=== PATIENT | female | born 1945 | race Caucasian/White ===

== ENCOUNTER 2023-10-04 18:41 | Emergency (ER) | payer MEDICARE, OTHER, SELFPAY ==
[2023-10-04] VITALS (8 sets, daily range): BP systolic 125–171; BP diastolic 53–86
[2023-10-04 22:08] LABS: % Basophils 0.6 % (0-2); % Eosinophils 8.2 % (0-6); % Immature Granulocytes 0.3 % (0-0.5); % Lymphocytes 23.5 % (20.5-51.1); % Monocytes 7.9 % (1.7-9.3); % Neutrophils 59.5 % (42.2-75.2); Absolute Eosinophils 0.6 10^3/uL (0-0.7); Absolute Lymphocytes 1.6 10^3/uL (1.2-3.4); Absolute Monocytes 0.5 10^3/uL (0.1-0.6); Absolute Neutrophils 4.1 10^3/uL (1.4-6.5); Hematocrit 38.5 % (37.0-47.0); Hemoglobin 13.4 g/dL (12.0-16.0); Mean Corp Hgb Conc. 34.8 g/dL (33.0-37.0); Mean Corpuscular Hgb 30.8 pg (27.0-31.0); Mean Corpuscular Volume 88.5 fL (81.0-99.0); Mean Platelet Volume 9.8 fL (7.4-10.4); Nucleated Red Blood Cells % 0 %; Platelet Count 241 10^3/uL (130-400); Red Blood Cell Count 4.35 10^6/uL (4.20-5.40); Red Cell Dist. Width 12.6 % (11.5-14.5); White Blood Cell Count 6.9 10^3/uL (4.8-10.8)
[2023-10-04 22:23] LABS: COVID-19 Antigen Negative (Negative)
[2023-10-04] MEDS: NSS 1000 IV (22:28)
[2023-10-04] MEDS: BENADRYL 25 MG IV (22:28)
[2023-10-04] MEDS: REGLAN 10 MG IV (22:28)
[2023-10-04 22:36] LABS: Blood Urea Nitrogen 30 mg/dl (7-17); Calcium 9.3 mg/dl (8.4-10.2); Carbon Dioxide 24 mmol/L (22-30); Chloride 107 mmol/L (98-107); Glucose 94 mg/dl (70-99); Sodium 136 mmol/L (135-145); eGFR > 60.00
--- NOTE | 2023-10-04 23:23 | ED.GENMED ---
History of Present Illness
General
Chief Complaint: Ear Problem
Source: patient
Exam Limitations: none
Time Seen by Provider: 10/04/23 21:04
Nursing documentation reviewed up to this point in time: agreed with
Travel History
Have you had any contact with someone who has COVID-19?: No
Do you have any symptoms of coronavirus? Fever > 100 degrees, chills, cough, shortness of breath, sore throat, loss of taste or smell, muscle aches, or headache?: No
History of Present Illness
History of Present Illness:
77-year-old female with history of hypertension who presents to the emergency department for evaluation of tinnitus and headache, neck stiffness. Patient reports that 2 weeks ago she woke up with throbbing in her right ear. She says that this has
been persistent since then although intensity seems to worsen at nighttime. She says that initially she saw her primary doctor who thought perhaps she could have an ear infection and prescribed her some eardrops without improvement. She then was
sent for a CT of her sinuses which showed questionable sinusitis but no other acute pathology. She was referred to ENT but says that she was unable to get a follow-up appointment until October. This morning patient woke up with significant headache
she describes a biparietal headache. She says she is having stiffness in her neck. She says that with these worsening symptoms and continued pulsating in her right ear she came to the emergency to be assessed. She denies any nausea or vomiting.
She denies any change in vision or speech. Denies any weakness or numbness in her extremities. She denies any chest pain or shortness of breath. She denies having similar symptoms in the past. She denies any trauma to the head.
Past History
Past History
ED Past Medical History: HTN, Hypercholesterolemia and Other (Bowel obstruction, Diverticulosis and diverticulitis)
ED Past Surgical History: Bowel resection and Cholecystectomy
Social History
Tobacco: Non-smoker
Alcohol: Occasional
Personal:
Living: alone
Review of Systems
Review of Systems
All Other Systems: ROS reviewed and negative except as documented in HPI and ROS
Constitutional: Denies fever or chills
EENT: Reports other (Pulsatile tinnitus)
Respiratory: Denies cough or trouble breathing
Cardiac: Denies chest pain or palpitations
ABD/GI: Denies abdominal pain, nausea, vomiting or diarrhea
: Denies flank pain
Musculoskeletal: Reports other (Neck pain/stiffness); Denies neck pain or back pain
Neurological: Reports headache; Denies dizzy, weakness or numbness
Phy Exam
Physical Exam
Physical Exam:
General: Awake, alert, oriented x3; nontoxic
Head: Normocephalic, atraumatic
Eyes: Conjunctiva normal, EOMI, pupils equal round reactive to light bilateral
Ears: External ear normal bilaterally, no redness or tenderness of the mastoid processes bilaterally; TMs are clear bilaterally
Throat: Airway intact, handling secretions
Neck: Trachea midline, supple without meningismus; she does have some tenderness along the upper trapezius bilaterally somewhat worse on the left
Lungs: Clear to auscultation bilaterally, no wheezing, rales, rhonchi
Heart: Regular rate and rhythm, no murmurs, gallops, or rubs
Abd: Soft, non distended, nontender
Neuro: Cranial nerves intact 2 through 12, speech is fluent with no dysarthria or aphasia, no limb ataxia noted, motor and sensory function intact and symmetric proximally and distally in the upper and lower extremities
Skin: no rash
Extremities: No edema in extremities, equal pulses in all extremities
Scores
Heart Failure Risk
Heart Failure Risk Score: Not Applicable
Heart Score for Chest Pain Patients
STEMI patient?: Not applicable
Withdrawal Assessment of Alcohol
Withdrawal Assessment Completed?: Not applicable
Course
Orders/Labs/Results
Orders:
Orders
10/04/23 21:32
CT Head & Neck Angio W/wo IV Urgent
Comment:
Reason For Exam: pulsatile tinnitus x2w, now severe FITZGERALD, neck stiff
10/04/23 21:33
0.9% Sodium Chloride 1000 ml [Nss] 1,000 ml IV BOLUS
Diphenhydramine [Benadryl] 25 mg IV NOW STA
Metoclopramide [Reglan] 10 mg IV NOW STA
10/04/23 21:58
Basic Metabolic Panel Urgent
COVID-19 Antigen Urgent
Source: Nasal Swab
Complete Blood Count/With Diff Urgent
Influenza A+B Rapid Molecular Urgent
RAUDEL Source: Nasal Swab
Specimen Description:
10/05/23 00:11
Acetaminophen [Tylenol] 1,000 mg PO NOW STA
Ketorolac [Toradol] 15 mg IV NOW STA
Abnormal Lab Results
10/04/23
21:58
Eosinophils % 8.2 H %
(0-6)
BUN 30 H mg/dl
(7-17)
10/04/23 21:58
10/04/23 21:58
Vital Signs
Initial and Last Documented VS:
Initial Vital Signs
Temp Pulse Resp BP Pulse Ox
36.6 C 94 18 171/86 98
10/04/23 18:45 10/04/23 18:45 10/04/23 18:45 10/04/23 18:45 10/04/23 18:45
Last Documented Vital Signs
Temp Pulse Resp BP Pulse Ox
36.6 C 79 16 158/68 98
10/04/23 18:45 10/04/23 20:51 10/04/23 20:51 10/04/23 20:51 10/04/23 20:51
MDM/Problems Addressed
Differential Diagnosis Includes:
Hypertension, subarachnoid hemorrhage/aneurysm, carotid stenosis/dissection, vestibular schwannoma, ear infection
MDM/Problems Addressed:
77-year-old female presents for evaluation of pulsatile tinnitus now with headache and neck stiffness. Hypertensive to 171/86. Rest of vitals within acceptable range. Physical exam as above. Plan to place an IV check labs including CBC and CMP.
Swab for COVID influenza. Will check CTA of the head and neck to rule out hemorrhage, aneurysm, significant stenosis. Will treat symptomatically, monitor closely reassess after the above.
Labs reviewed: CBC and CMP unremarkable. Viral swabs negative. Awaiting results of CT. Blood pressure improving without intervention continue to monitor. Symptoms essentially unchanged.
CTA head and neck negative for hemorrhage, aneurysm, stenosis or dissection. Clinical reassessment patient still complaining of some stiffness in her upper trapezius bilaterally but says the headache did improve since my initial reassessment.
Suspect that this is likely musculoskeletal pain at this point; possible some component of her pulsatile tinnitus over the past few days has been from hypertension as she was significantly hypertensive here in triage and symptoms improved as her
blood pressure came down. Very low clinical suspicion for meningitis based on full clinical picture I do not think there is any indication for emergent lumbar puncture at this point. Will plan to dose with some Toradol and Tylenol for neck
stiffness and will reassess her response.
Patient is feeling much better after Toradol and Tylenol. Blood pressure greatly improved. Offered further observation but patient feels comfortable going home will have her take NSAIDs and Tylenol for the next few days and follow-up with her
primary doctor as well as ENT as scheduled. She feels comfortable with this plan. Spoke about return precautions all questions answered.
Acute Exacerbation and/or Progression of Chronic Illness:
Acutely hypertensive
Acute Exacerbation and/or Progression of Chronic Illness: HTN
*Radiology
Radiology exam reviewed: radiology read reviewed
*Pulse Oximetry
Patient hypoxic: no
*Critical Care Note
Total Time (30-74mins, 75-104mins- exclusive of procedures): Not Applicable
Data Reviewed
Source: patient
ED Attending Note
-
Portions of this chart may have been created with voice recognition software.� Occasional wrong word or��sound alike� substitutions may have occurred due to the inherent limitations of voice recognition software.
Discharge Plan
Departure
Patient Disposition: Home (Routine Discharge)
Date of Disposition: 10/05/23
Time of Disposition: 00:47
Patient with high blood pressure during this ER visit?: Yes
Discharge Problem:
Neck strain, Headache, Tinnitus, Hypertension
Instructions: Tinnitus (ringing in the ears), Cervical Muscle Strain, High Blood Pressure ED
Prescriptions:
No Action
lisinopril 10 MG tablet
10 mg PO DAILY
indapamide
2 mg PO DAILY
cefdinir 300 mg capsule
300 mg PO BID Qty: 14 0RF
Referrals:
Wade Weeks MD [Family Provider] - Call in 1-3 days for appt
Activity Restrictions/Additional Instructions:
Thank you for visiting the Emergency Department at [facility].
1. Please schedule a follow up appointment as directed. Call first thing tomorrow morning to make an appointment.
2. If indicated, please take your medications as instructed and indicated on discharge paperwork.
3. If any of your symptoms do not improve, or persist, or become more severe within 6-12 hours, please return to the emergency department for further care.
4. Please return to the emergency department if you develop a headache, neck pain/stiffness, fever greater than 100.4F, chest pain, shortness of breath, persistent nausea, vomiting, slurred speech, difficulty walking, numbness/tingling, weakness,
signs of infection or any other symptoms that are worrisome to you.
Please call [phone] if you have any questions.
Interventions
Interventions:
*Risk Screen - Suicide Last Done: 10/04/23 20:38
*General Assessment Last Done: 10/04/23 18:45
*Neglect/Abuse Screening Last Done: 10/04/23 20:38
ED- Fall Risk Assessment Last Done: 10/04/23 20:38
*ED COVID-19 Vaccine History Last Done: 10/04/23 18:45
[2023-10-05] MEDS: TORADOL 15 MG IV (00:25)
[2023-10-05] MEDS: TYLENOL 1000 MG PO (00:25)
[2023-10-05 01:00] VITALS: BP 135/62
== END 2023-10-05 01:23 | disposition home or self-care (01) ==
LOC: EMR 18:41
PROVIDERS: EMERGENCY PHYSICIAN Emergency Medicine; FAMILY PHYSICIAN Family Medicine
DX: S16.1XXA Strain of muscle, fascia and tendon at neck level, initial encounter (principal); I10 Essential (primary) hypertension; R51.9 Headache, unspecified; H93.11 Tinnitus, right ear; Z11.52 Encounter for screening for COVID-19; X58.XXXA Exposure to other specified factors, initial encounter; E78.00 Pure hypercholesterolemia, unspecified; K57.90 Diverticulosis of intestine, part unspecified, without perforation or abscess without bleeding; Z98.0 Intestinal bypass and anastomosis status; Z90.49 Acquired absence of other specified parts of digestive tract
CPT/HCPCS: 99285; 96374; 96375 ×2; 70496; 70498; 80048; 85025; 87502; 87811; Q9967

== ENCOUNTER 2024-03-04 05:54 | Emergency (ER) | payer MEDICARE, OTHER, SELFPAY ==
[2024-03-04 05:56] VITALS: BP 164/81
--- NOTE | 2024-03-04 06:24 | ED.GENMED ---
History of Present Illness
General
Chief Complaint: Headache
Source: patient
Exam Limitations: none
Time Seen by Provider: 03/04/24 06:04
Nursing documentation reviewed up to this point in time: agreed with
History of Present Illness
History of Present Illness:
Patient presents to ED secondary to persistent left-sided neck pain, after waking from sleep yesterday morning. Since then, pain has been persistent, but worse with any movement. At times, pain has radiated up to her head. Otherwise, denies fever
or chills. Denies loss of sensation or weakness. Denies difficulty with swallowing. Denies difficulty with ambulation. Denies direct trauma. Denies recent change in level activities. Of note, patient reports having had similar symptoms in
September of this year, at which time, she experienced ringing sensation in her ear as well as neck pain. She received normal imaging studies in ED and has been following up with her primary care within since then. Unfortunately, ringing sensation,
which initially resolved, has come back earlier this month. She has been prescribed naproxen by her primary care physician with improvement, along with referral to ENT physician, which is scheduled for next month.
Past History
Past History
ED Past Medical History: HTN, Hypercholesterolemia and Other (Bowel obstruction, Diverticulosis and diverticulitis)
ED Past Surgical History: Bowel resection and Cholecystectomy
Social History
Tobacco: Non-smoker
Alcohol: Occasional
Personal:
Living: alone
Review of Systems
Review of Systems
Allergies reviewed?: Yes
All Other Systems: ROS reviewed and negative except as documented in HPI and ROS
Constitutional: Reports no symptoms; Denies fever
EENT: Reports no symptoms; Denies sore throat
Respiratory: Denies trouble breathing
Cardiac: Denies chest pain
Musculoskeletal: Reports neck pain
Skin: Reports no symptoms
Neurological: Reports headache; Denies dizzy, weakness or numbness
Phy Exam
Physical Exam
Physical Exam:
Physical Exam
General: no apparent distress, not acutely ill. afebrile
Head: nc/at. eomi
Neck: supple. no midline tenderness. no deformity. mild, focal tenderness to palpation over left side of neck, along sternocleidomastoid muscle with mild spasm.
Heart: s1/s2 regular rate and rhythm, no murmur. equal radial pulses.
Lungs: no acute respiratory distress. clear bilaterally
Abdomen: normal bowel sounds. not tender.
Neuro: alert and oriented. no focal neurological deficits. normal speech. normal gait.
Skin: no rash
Psychiatric: well kept. interactive and cooperative
Extremities: no edema. no calf tenderness.
Course
Orders/Labs/Results
Orders:
Orders
03/04/24 06:24
Dexamethasone Pf [Decadron] 10 mg PO NOW STA
Vital Signs
Initial and Last Documented VS:
Initial Vital Signs
Temp Pulse Resp BP Pulse Ox
97.8 F 73 18 164/81 98
03/04/24 05:56 03/04/24 05:56 03/04/24 05:56 03/04/24 05:56 03/04/24 05:56
Last Documented Vital Signs
Temp Pulse Resp BP Pulse Ox
97.8 F 73 18 164/81 98
03/04/24 05:56 03/04/24 05:56 03/04/24 05:56 03/04/24 05:56 03/04/24 05:56
MDM/Problems Addressed
MDM/Problems Addressed:
Patient's ED visit from September 2023 were reviewed, including blood work and imaging studies. No significant findings noted, including CT angiogram of head and neck. History and exam consistent with likely mild neck muscle spasm, likely secondary
to underlying degenerative disease versus nerve impingement. Otherwise, patient is afebrile, hemodynamically stable, and neurologically intact. I do not feel that patient needs any further imaging studies at this time. However, patient will be
treated conservatively with continuation of naproxen, as well as prescribed Medrol Dosepak, along with warm compress application. Advised close follow-up with PMD physician, including potential MRI cervical spine as an outpatient, if symptoms
persist. Advised patient to return to ED immediately with any change in her symptoms, especially with any neurological deficit or worsening symptoms. Patient expressed understanding at time of discharge.
*Critical Care Note
Total Time (30-74mins, 75-104mins- exclusive of procedures): Not Applicable
ED Attending Note
-
Portions of this chart may have been created with voice recognition software.� Occasional wrong word or��sound alike� substitutions may have occurred due to the inherent limitations of voice recognition software.
Discharge Plan
Departure
Patient Disposition: Home (Routine Discharge)
Date of Disposition: 03/04/24
Time of Disposition: :24
Patient with high blood pressure during this ER visit?: Yes
Condition: Good
Discharge Problem:
Neck pain
Instructions: Neck Pain ED
Prescriptions:
New
methylprednisolone [Medrol (Efrain)] 4 mg tablets,dose pack
4 mg PO DAILY Qty: 21 0RF
No Action
lisinopril 10 MG tablet
10 mg PO DAILY
indapamide
2 mg PO DAILY
cefdinir 300 mg capsule
300 mg PO BID Qty: 14 0RF
Activity Restrictions/Additional Instructions:
As discussed, please follow-up with your primary care physician and/or ENT physician for reevaluation. In addition, please discuss with your primary care physician about obtaining MRI cervical spine, as outpatient, if your symptoms persist. You
have been given prescription for steroids, which you may consider taking in 48 hours, if your symptoms persist. Please return to ED with worsening symptoms, i.e. fever/headache/dizziness/weakness/difficulty walking
Interventions
Interventions:
*Risk Screen - Suicide Last Done: 03/04/24 05:56
*General Assessment Last Done: 03/04/24 05:56
*Neglect/Abuse Screening Last Done: 03/04/24 05:56
ED- Fall Risk Assessment Last Done: 03/04/24 05:56
*ED COVID-19 Vaccine History Last Done: 03/04/24 05:56
*Nursing Disposition Last Done: 03/04/24 06:57
ED- Neurological Assessment Last Done: 03/04/24 06:30
Discharge Date and Time
Discharge Date/Time: 03/04/24 06:50
Print Language: CAMBODIAN
[2024-03-04] MEDS: DECADRON 10 MG PO (06:36)
== END 2024-03-04 06:50 | disposition home or self-care (01) ==
LOC: EMR 05:54
PROVIDERS: EMERGENCY PHYSICIAN Emergency Medicine; FAMILY PHYSICIAN Family Medicine
DX: M54.2 Cervicalgia (principal); R51.9 Headache, unspecified; M43.6 Torticollis; I10 Essential (primary) hypertension; E78.00 Pure hypercholesterolemia, unspecified; K57.90 Diverticulosis of intestine, part unspecified, without perforation or abscess without bleeding; Z98.0 Intestinal bypass and anastomosis status; Z90.49 Acquired absence of other specified parts of digestive tract
CPT/HCPCS: 99283

== ENCOUNTER → 2024-04-24 08:56 | Outpatient (REF) | payer MEDICARE, OTHER, SELFPAY | LOC: RAD 08:56 | PROVIDERS: ATTENDING PHYSICIAN Otolaryngology; FAMILY PHYSICIAN Family Medicine | DX: E04.9 Nontoxic goiter, unspecified (principal) | CPT/HCPCS: 76536 ==

== ENCOUNTER → 2024-05-13 08:41 | Outpatient (REF) | payer MEDICARE, OTHER, SELFPAY ==
[2024-05-13 08:54] VITALS: BP 165/78; BP_SYST 84
== END ==
LOC: RADI 08:41
PROVIDERS: ATTENDING PHYSICIAN Otolaryngology; FAMILY PHYSICIAN Family Medicine
DX: E04.1 Nontoxic single thyroid nodule (principal)
CPT/HCPCS: 88173; 10005

== ENCOUNTER → 2024-08-18 11:01 | Outpatient (REF) | payer MEDICARE, OTHER, SELFPAY ==
[2024-08-18 12:49] LABS: % Basophils 0.6 % (0-2); % Eosinophils 5.8 % (0-6); % Immature Granulocytes 0.4 % (0-0.5); % Lymphocytes 21.8 % (20.5-51.1); % Monocytes 6.5 % (1.7-9.3); % Neutrophils 64.9 % (42.2-75.2); Absolute Eosinophils 0.4 10^3/uL (0-0.7); Absolute Lymphocytes 1.6 10^3/uL (1.2-3.4); Absolute Monocytes 0.5 10^3/uL (0.1-0.6); Absolute Neutrophils 4.7 10^3/uL (1.4-6.5); Hemoglobin 12.5 g/dL (12.0-16.0); Mean Corp Hgb Conc. 34.7 g/dL (33.0-37.0); Mean Corpuscular Hgb 30.9 pg (27.0-31.0); Mean Corpuscular Volume 88.9 fL (81.0-99.0); Mean Platelet Volume 10.1 fL (7.4-10.4); Nucleated Red Blood Cells % 0 %; Platelet Count 241 10^3/uL (130-400); Red Blood Cell Count 4.05 10^6/uL (4.20-5.40); Red Cell Dist. Width 12.5 % (11.5-14.5); White Blood Cell Count 7.2 10^3/uL (4.8-10.8)
[2024-08-18 13:15] LABS: C-Reactive Protein < 5.00 mg/L (0.0-10.00)
[2024-08-18 13:56] LABS: Erythrocyte Sed Rate 33 mm/hour (0-20)
== END ==
LOC: REG 11:01
PROVIDERS: ATTENDING PHYSICIAN Ophthalmology; FAMILY PHYSICIAN Family Medicine
DX: R51.9 Headache, unspecified (principal)
CPT/HCPCS: 36415; 85025; 85652; 86140

== ENCOUNTER → 2024-08-22 14:01 | Outpatient (REF) | payer MEDICARE, OTHER, SELFPAY | LOC: WDC 14:01 | PROVIDERS: ATTENDING PHYSICIAN Family Medicine | DX: Z12.31 Encounter for screening mammogram for malignant neoplasm of breast (principal) | CPT/HCPCS: 77063; 77067 ==

== ENCOUNTER → 2024-10-01 12:10 | Outpatient (REF) | payer MEDICARE, OTHER, SELFPAY | LOC: RAD 12:10 | PROVIDERS: ATTENDING PHYSICIAN Family Medicine | DX: S20.211A Contusion of right front wall of thorax, initial encounter (principal) | CPT/HCPCS: 71101 ==

== ENCOUNTER → 2024-11-03 09:10 | Outpatient (REF) | payer MEDICARE, OTHER, SELFPAY ==
[2024-11-03 11:47] LABS: ALT (SGPT) 15 U/L (0-35); AST (SGOT) 17 U/L (14-36); Albumin 4.1 g/dl (3.5-5.0); Alkaline Phosphatase 82 U/L (38-126); Blood Urea Nitrogen 29 mg/dl (7-17); Calcium 9.6 mg/dl (8.4-10.2); Carbon Dioxide 31 mmol/L (22-30); Chloride 104 mmol/L (98-107); Glucose 89 mg/dl (70-99); HDL Cholesterol 61 mg/dl; LDL Cholesterol, Calculated 123 mg/dl; Potassium 4.2 mmol/L (3.5-5.1); Sodium 141 mmol/L (135-145); Total Bilirubin 0.8 mg/dl (0.2-1.3); Total Cholesterol 216 mg/dl (50-199); Total Protein 7.3 g/dl (6.3-8.2); Triglyceride 160 mg/dl (10-149); Very Low Density Lipoprotein 32 mg/dl (0-30); eGFR 46.33
== END ==
LOC: REG 09:10
PROVIDERS: ATTENDING PHYSICIAN Family Medicine
DX: I10 Essential (primary) hypertension (principal); E78.00 Pure hypercholesterolemia, unspecified; N18.30 Chronic kidney disease, stage 3 unspecified; R79.9 Abnormal finding of blood chemistry, unspecified
CPT/HCPCS: 36415; 80053; 80061

== ENCOUNTER → 2024-12-07 09:01 | Outpatient (REF) | payer MEDICARE, OTHER, SELFPAY | LOC: RAD 09:01 | PROVIDERS: ATTENDING PHYSICIAN Otolaryngology; FAMILY PHYSICIAN Family Medicine | DX: E04.9 Nontoxic goiter, unspecified (principal) | CPT/HCPCS: 76536 ==

== ENCOUNTER → 2024-12-23 09:15 | Outpatient (REF) | payer MEDICARE, OTHER, SELFPAY ==
[2024-12-23 09:30] VITALS: BP 161/78; BP_SYST 76
== END ==
LOC: RADI 09:15
PROVIDERS: ATTENDING PHYSICIAN Otolaryngology; FAMILY PHYSICIAN Family Medicine
DX: E04.1 Nontoxic single thyroid nodule (principal)
CPT/HCPCS: 88173; 10005

== ENCOUNTER → 2025-03-18 12:48 | Outpatient (REF) | payer MEDICARE, OTHER, SELFPAY | LOC: RAD 12:48 | PROVIDERS: ATTENDING PHYSICIAN Physician Assistant; FAMILY PHYSICIAN Family Medicine | DX: M54.2 Cervicalgia (principal) | CPT/HCPCS: 72052 ==

== ENCOUNTER → 2025-05-24 14:26 | Outpatient (REF) | payer MEDICARE, OTHER, SELFPAY ==
[2025-05-24 15:12] LABS: Hematocrit 35.6 % (37.0-47.0); Hemoglobin 11.9 g/dL (12.0-16.0); Mean Corp Hgb Conc. 33.4 g/dL (33.0-37.0); Mean Corpuscular Volume 88.6 fL (81.0-99.0); Nucleated Red Blood Cells % 0 %; Platelet Count 261 10^3/uL (130-400); Red Cell Dist. Width 12.8 % (11.5-14.5)
[2025-05-24 15:32] LABS: Uric Acid 8.8 mg/dl (2.5-6.2)
== END ==
LOC: REG 14:26
PROVIDERS: ATTENDING PHYSICIAN Podiatrist; FAMILY PHYSICIAN Family Medicine
DX: M10.071 Idiopathic gout, right ankle and foot (principal); M21.611 Bunion of right foot
CPT/HCPCS: 36415; 84550; 85025; 85652